=== PATIENT | female | born 1995 | race Caucasian/White ===

== ENCOUNTER → 2017-02-16 | Outpatient (CLI) | payer OTHER ==
--- NOTE | 2017-02-16 12:35 | RADIOLOGY REPORT (SQ) ---
EXAM DESCRIPTION: U/S NON-OB PELVIS W/O DOP COMPLETED DATE/TIME: 02/16/2017 12:04 pm REASON FOR STUDY: FOREIGN BODY IN UTERUS T19.3XXA FOREIGN BODY IN UTERUS, INITIAL ENCOUNTER COMPARISON: None TECHNIQUE: Dynamic and static grayscale images acquired of the pelvis via transabdominal approach an d recorded on PACS. Additional selected color Doppler and spectral images recorded. LIMITATIONS: None. FINDINGS: UTERUS: Contour normal. No mass. ENDOMETRIAL STRIPE: No focal or generalized thickening. No masses. CERVIX: No nabothian cysts. RIGHT OVARY: No abnormal masses. RIGHT OVARY DOPPLER: Normal arterial vascular flow without evidence for torsion. LEFT OVARY: Ovary not visualized. LEFT OVARY DOPPLER: Ovary not visualized. FREE FLUID: None noted. OTHER: No other significant finding. MEASUREMENTS: UTERUS: 3.6 x 4.2 x 7.5 cm. ENDOMETRIAL STRIPE: 5 mm. RIGHT OVARY: 1.7 x 1.8 x 2.6 cm. LEFT OVARY: Not visualized. IMPRESSION: NORMAL PELVIC ULTRASOUND BY TRANSABDOMINAL TECHNIQUE. NO FOREIGN BODY VISUALIZED. TECHNICAL DOCUMENTATION: JOB ID: [id number] [employer]- All Rights Reserved
== END ==
LOC: RAD 10:51
PROVIDERS: ATTEND Clinical Nurse Specialist Adult Health
DX: T19.3XXA Foreign body in uterus, initial encounter (principal)
CPT/HCPCS: 76856